=== PATIENT | female | born 1945 | race Caucasian/White ===

== ENCOUNTER 2023-04-24 10:05 | Outpatient (OUT) | payer MEDICARE, SELFPAY ==
--- NOTE | 2023-04-24 10:18 | MM_ITS ---
Patient: BRIAN RIVERA Exam Date: 04/24/2023 : 1945 Gender:F Ordering : DR JENIFFER WELLS Admission #: [id number] Family : DR ELOISE BALL M.D. Order #: [id number] CLICK HERE TO VIEW EXAM RADIOLOGY REPORT PROCEDURE: MM TOMOSYNTHESIS SCREENING BI COMPARISON: MG MAMM SCREEN 3D PATRICIO CAD, 04/23/2022. MG MAMM RT DIAG FU, 05/22/2022. MG STEREO CORE NDL W CLIP RT, 05/22/2022. INDICATIONS: Screening Calculator Name NCI Breast Cancer Risk Assessment Tool 5 Year Breast Cancer Risk 2.40% Lifetime Breast Cancer Risk 5.10% Personal Breast Cancer No Personal Ovarian Cancer No Treatments None Family Cancers None LOCATION: [facility] BREAST COMPOSITION: Scattered areas fibroglandular density. FINDINGS: DIAGNOSTIC CATEGORY 2--BENIGN FINDING. NO CHANGE FROM COMPARISON. Scattered benign-appearing calcifications are present. RIGHT BREAST: No significant suspicious finding. Stable architectural distortion and micro clip markers upper-outer quadrant from prior procedure LEFT BREAST: No significant suspicious finding. RECOMMENDATIONS: ROUTINE MAMMOGRAM AND CLINICAL EVALUATION IN 12 MONTHS. PLEASE NOTE: A NORMAL MAMMOGRAM DOES NOT EXCLUDE THE POSSIBILITY OF BREAST CANCER. A CLINICALLY SUSPICIOUS PALPABLE LUMP SHOULD BE BIOPSIED. Dictated by: Eddie Smith MD on 04/24/2023 at 11:49 Approved by: Eddie Smith MD on 04/24/2023 at 11:51
--- NOTE | 2023-04-24 10:18 | XR_ITS ---
[address] [address] Patient Name: BRIAN RIVERA MRN: [id number] date: 1945 Sex: F Assigned Patient Location: [facility] Current Patient Location: [facility] Accession/Order Number: [id number] Exam Date: 04/24/2023 10:45 Report Date: 04/24/2023 12:56 At the request of: JENIFFER GOLDSMITH Procedure: XR DEXA axial skeleton EXAMINATION: XR DEXA axial skeleton, 04/24/2023 10:45 AM EDT HISTORY: Estrogen Deficiency, Osteopenia Of Multiple Sites M85.89 COMPARISON: None. TECHNIQUE: Dual-energy X-ray absorptiometry (DEXA) bone density study performed for the axial skeleton. HISTORY: Estrogen Deficiency, Osteopenia Of Multiple Sites M85.89 FINDINGS: Bone mineral density AP spine L2-L4 measures 1.75 g/sq cm. T score 4.6. Likely elevated secondary to extensive degenerative spondylosis Lowest bone mineral density right femoral trochanter measures 0.651 g/sq cm. T score -1.7. WHO classification: Osteopenia XR/XR DEXA axial skeleton IMPRESSION: Osteopenia. Moderate fracture risk Electronically authenticated by: BURAK GIORDANO Date: 04/24/2023 12:56
== END 2023-04-24 10:06 | disposition home or self-care (01) ==
LOC: MAMMO 10:06
PROVIDERS: PCP Internal Medicine; Visit Provider Physician Assistant
DX: Z12.31 Encounter for screening mammogram for malignant neoplasm of breast (principal); M85.89 Other specified disorders of bone density and structure, multiple sites; M85.80 Other specified disorders of bone density and structure, unspecified site
CPT/HCPCS: 77063; 77067; 77080